=== PATIENT | female | born 1955 | race Caucasian/White ===

== ENCOUNTER 2024-05-06 17:54 | Emergency (ER) | payer MEDICARE ==
[~2024-05-06] VITALS: Ht 162.6 cm; Wt 125.6 kg
[2024-05-06 18:04] VITALS: BP 179/84; PULSE 58; RESP 18; TEMP 98.8; O2SAT 96
[2024-05-06 19:00] VITALS: BP 213/108; PULSE 76; RESP 18; TEMP 98.8; O2SAT 94
[2024-05-06 20:00] VITALS: BP 182/92; PULSE 76; RESP 18; TEMP 98.8; O2SAT 94
[2024-05-06 21:00] VITALS: BP 176/79; PULSE 74; RESP 18; TEMP 98.8; O2SAT 97
[2024-05-06] MEDS ORDERED: TORADOL ONE (21:08)
[2024-05-06] MEDS: TORADOL IM STA (21:13)
[2024-05-06 21:38] LABS: INFLUENZA VIRUS A ANTIGEN NEGATIVE (NEG)
[2024-05-06 21:39] LABS: INFLUENZA VIRUS B ANTIGEN NEGATIVE (NEG)
[2024-05-06 22:09] VITALS: BP 153/71; PULSE 75; RESP 18; TEMP 98.8; O2SAT 97
== END 2024-05-06 22:07 | disposition home or self-care (01) ==
LOC: ER 17:54
DX: J06.9 Acute upper respiratory infection, unspecified (principal); E11.9 Type 2 diabetes mellitus without complications; I10 Essential (primary) hypertension; Z88.0 Allergy status to penicillin; Z88.2 Allergy status to sulfonamides; Z20.822 Contact with and (suspected) exposure to COVID-19
CPT/HCPCS: 99283; 87426; 96372; 87070; 87880; 87804 ×2; J1885